=== PATIENT | male | born 1985 | race Hispanic/Latino ===

== ENCOUNTER 2019-04-21 07:15 | Day surgery (SDC) | payer BC ==
--- NOTE | 2019-04-20 11:10 | HP ---
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 He has umbilical hernia present for 5 years, enlarging and bothersome. He desires repair. He is . ALLERGIES: NONE. SOCIAL HISTORY: Tobacco, none. Alcohol, rarely. MEDICATIONS: None routinely. PAST MEDICAL HISTORY: Noncontributory. PAST SURGICAL HISTORY: Noncontributory. REVIEW OF SYSTEMS: Noncontributory. FAMILY HISTORY: Noncontributory. PHYSICAL EXAMINATION: VITAL SIGNS: Weight 165 pounds, height 64 inches, 28 BMI, blood pressure 143/89, pulse 80, temperature 97 degrees. HEAD, EARS, EYES, NOSE AND THROAT: Unremarkable. LUNGS: Clear to auscultation. CARDIAC: Regular rate and rhythm without murmur or gallop. ABDOMEN: Soft. Umbilical hernia, reducible, 2 to 3 cm defect. EXTREMITIES: Unremarkable. No ankle edema. ASSESSMENT/PLAN: Umbilical hernia. PLAN: Robot mesh repair as outpatient. He understands risks and benefits. Job ID: [id number]
[2019-04-20 15:28] VITALS: BMI 28.3
[2019-04-21] MEDS ORDERED: Ketorolac Tromethamine 30 MG/ML VIAL ONE (07:35)
[2019-04-21 07:54] LABS: #Eosinphils 0.1 thou/uL (0.0-0.7); #Lymphocytes 1.5 thou/uL (1.20-3.40); #Monocytes 0.6 thou/uL (0.11-0.59); #Neutrophils 4.2 thou/uL (1.40-6.50); %Basophils 0.2 % (0.0-1.0); %Eosinophils 1.7 % (0.0-10.0); %Lymphocytes 23.9 % (21.0-51.0); %Neutrophils 65.3 % (42.0-75.0); Mean Corpuscular HGB CONC 31.6 g/dL (32.0-36.0); Mean Corpuscular Hemoglobin 19.1 pg (27.0-31.0); Mean Corpuscular Volume 60.5 fL (78.0-98.0); Mean Platelet Volume 9.6 fL (7.4-10.4); Platelet Count 191 thou/uL (130-400); RBC Distribution Width 14.6 % (11.5-14.5); Red Blood Cell (RBC) Count 6.79 mill/uL (4.70-6.10); White Blood Cell (WBC) Count 6.4 thou/uL (4.8-10.8)
[2019-04-21 08:10] LABS: Reflex for Review?? YES
[2019-04-21 08:14] LABS: Anion Gap 12 mmol/L (10-20); BUN (Urea Nitrogen) 12 mg/dL (8.9-20.6); Calc. Creatinine Clearance 159 mL/min (70-130); Calcium 9.2 mg/dL (7.8-10.44); Carbon Dioxide 26 mmol/L (22-29); Chloride 104 mmol/L (98-107); Estimated GFR-MDRD Greater than 90; Glucose 97 mg/dL (70-105); Potassium 4.3 mmol/L (3.5-5.1); Sodium 138 mmol/L (136-145)
[2019-04-21 08:16] LABS: Hypochromia SLIGHT = 6-15 cells (100X) (0-5/hpf); Microcytosis MARKED = >30 cells (100X) (0-5/hpf); Polychromasia MODERATE = 3-4 cells (100X) (0-2/hpf); Target Cells SLIGHT = 2-5 cells (100X) (0-1/hpf)
[2019-04-21] MEDS ORDERED: Bupivacaine/Epinephrine 0.25% 30 ML VIAL ONE (08:16)
[2019-04-21 08:17] LABS: Platelet Morphology Comment Appears Adequate; Stomatocytes SLIGHT = 2-5 cells (100X) (0-1/hpf)
[2019-04-21] MEDS ORDERED: Midazolam HCl 2 mg/2 ml Vial ONE (08:37)
[2019-04-21] MEDS ORDERED: Fentanyl 250 MCG/5 ML VIAL ONE (08:37)
--- NOTE | 2019-04-21 11:33 | CON ---
DATE OF CONSULTATION: 04/21/2019 This is a 33-year-old white male, whom Dr. Vega had just finished doing a robotic umbilical hernia repair on. He had a Benavides catheter at the time of the case when the catheter was being removed, there was a notable pop sound noted by the nurses and he only received 5 mL of the 10 mL that was placed in the balloon and no further would come out. The catheter was then easily removed, but it was noted that the balloon had broken and was incomplete suggesting that there was a portion of the balloon still in the bladder. I was in an adjacent room at that time, and I looked at the balloon and it looked like it was not complete and while the patient was still under anesthetic, we elected to look inside and remove whatever portion of the balloon was still inside. He was at this point, placed in the dorsal lithotomy position and sterilely prepped and draped with Betadine. He is not circumcised, but there is no phimosis, no lesions. Testicles descended without any mass noted. Cystoscopy was performed with a 22-Namibian sheath, this was well lubricated and passed under direct vision through the male urethra and into the urinary bladder with the aid of a 30-degree lens and a video camera and monitor. The bladder was examined with 30- and 70-degree lens. The piece of the balloon was just 1 piece and it was actually kind of floating up near the mid anterior wall/dome region. It was grasped with a pair of flexible grasping forceps and removed intact. We repeated cystoscopy to be sure there was no other abnormality or part of the balloon left, and we found no other abnormality or part of the balloon left in the bladder. There was no evidence of any damage to the bladder, prostatic urethra, membranous urethra, or a penile urethra it was noted endoscopically. There was no need for catheter at the end. The bladder was drained. The instruments were removed. He was awakened, extubated, and taken by a stretcher to recovery room. Job ID: [id number]
--- NOTE | 2019-04-21 11:57 | OP ---
DATE OF PROCEDURE: 04/21/2019 ADDENDUM: Mr. Peres after completion of the operation, had Benavides catheter removed. The balloon had ruptured and there were suspected balloon segments in the bladder. Dr. Kohli was consulted and he will perform a cystoscopy to retrieve the balloon fragments. Job ID: [id number]
--- NOTE | 2019-04-21 12:09 | OP ---
DATE OF PROCEDURE: 04/21/2019 PREOPERATIVE DIAGNOSIS: Umbilical hernia. POSTOPERATIVE DIAGNOSIS: Umbilical hernia. PROCEDURE PERFORMED: Robot laparoscopic repair of umbilical hernia with primary fascial closure using V-Loc and reinforcement of fascial closure using an 8-cm Ventralight mesh. ANESTHESIA: General, local of 0.5% Marcaine with epinephrine 30 mL. DESCRIPTION OF PROCEDURE: The patient was taken to the operating room, where under general anesthesia, Benavides catheter was placed at the beginning of the procedure and removed at the end. Local anesthetic was infiltrated in the skin and subcutaneous tissue about each port site. A left subxiphoid incision was made and pneumoperitoneum to 15 mmHg was obtained with a Veress needle, replaced with the 11 mm port. Right lateral subcostal and left lateral subcostal incision made and 8-mm port was placed. A robot was docked. Robotic umbilical hernia repair undertaken. Using hot scissors, peritoneal flap dissected free, freeing the umbilicus to the fascia. The fascial defect was identified and umbilical fatty contents, which was abundant, was reduced, excised and discarded. The fascial defect was closed with continuous suture of #1 V-Loc suture, reducing the pneumoperitoneum to 9 mmHg to facilitate fascial approximation. The 8-cm Ventralight mesh was then secured to the abdominal wall with circumferential sutures of continuous suture #2-0 V-Loc suture. Pneumoperitoneum was reduced. All instruments were removed. All skin incisions were approximated with interrupted subdermal 4-0 Monocryl and Centre glue applied. The patient tolerated the procedure well. Job ID: [id number]
[2019-04-21] MEDS ORDERED: HYDROcodone/Acetaminophen 5/325 mg Tablet ONE (12:27)
[2019-04-21] MEDS ORDERED: Lidocaine 1% PF 5 ML VIAL ONE (16:40)
[2019-04-21] MEDS ORDERED: Glycopyrrolate 0.2 MG/ML 5 ML SYRINGE ONE (16:40)
[2019-04-21] MEDS ORDERED: Ondansetron PF 4 MG/2 ML Vial ONE (16:40)
[2019-04-21] MEDS ORDERED: PROPOFOL 200 MG/20 ML VIAL ONE (16:40)
[2019-04-21] MEDS ORDERED: Dexamethasone 20 MG/5 ML VIAL ONE (16:40)
[2019-04-21] MEDS ORDERED: Esmolol 100 MG/10 ML VIAL ONE (16:40)
[2019-04-21] MEDS ORDERED: Rocuronium Bromide 10 MG/ML (10ML VIAL) ONE (16:40)
[2019-04-23 16:09] LABS: Hemoglobin A2 4.8 % (1.8-3.2); Hemoglobin F 0 % (0.0-2.0); Interpretation Note: (.)
== END 2019-04-21 12:43 | disposition home or self-care (01) ==
LOC: SDC 07:15
PROVIDERS: ATTEND Specialist
PROC: 0WQF4ZZ Repair Abdominal Wall, Percutaneous Endoscopic Approach (ICD-10-PCS; principal; 2019-04-21)
DX: K42.9 Umbilical hernia without obstruction or gangrene (principal)
CPT/HCPCS: 36415; 80048; 83021; 85025; 85060; C1781; J0131; J0690; J1100; J1885; J2001; J2250; J2405; J2704; J3010